=== PATIENT | male | born 1945 | race Caucasian/White ===

== ENCOUNTER 2017-09-05 15:37 | Emergency (ER) | payer MEDICARE ==
[~2017-09-05 15:37] MED LIST: ISOVUE-370 76%-LOCM 1 ML ONE
[2017-09-05 20:49] LABS: #Eosinphils 0.1 thou/uL (0.0-0.7); #Lymphocytes 1.9 thou/uL (1.20-3.40); #Monocytes 0.7 thou/uL (0.11-0.59); #Neutrophils 5.8 thou/uL (1.40-6.50); %Basophils 0.4 % (0.0-1.0); %Lymphocytes 21.9 % (21.0-51.0); %Monocytes 8.2 % (0.0-10.0); %Neutrophils 68.5 % (42.0-75.0); Hemoglobin 15.5 g/dL (14.0-18.0); Mean Corpuscular HGB CONC 34.6 g/dL (32.0-36.0); Mean Corpuscular Hemoglobin 33.2 pg (27.0-31.0); Platelet Count 180 thou/uL (130-400); RBC Distribution Width 13.1 % (11.5-14.5); Red Blood Cell (RBC) Count 4.68 mill/uL (4.70-6.10); White Blood Cell (WBC) Count 8.4 thou/uL (4.8-10.8)
[2017-09-05] MEDS ORDERED: Morphine 4 MG/ML VIAL ONE (20:56)
[2017-09-05] MEDS ORDERED: Ondansetron HCl/PF 4 MG/2 ML Vial ONE (21:02)
[2017-09-05 21:10] LABS: ALT (SGPT) 47 U/L (8-55); AST (SGOT) 21 U/L (5-34); Alkaline Phosphatase 18 U/L (40-150); Anion Gap 16 mmol/L (10-20); BUN (Urea Nitrogen) 15 mg/dL (8.4-25.7); Bilirubin, Total 1.6 mg/dL (0.2-1.2); CK (CPK) 52 U/L (30-200); Calc. Creatinine Clearance 0 mL/min (70-130); Calcium 9.7 mg/dL (7.8-10.44); Carbon Dioxide 25 mmol/L (23-31); Chloride 105 mmol/L (98-107); Estimated GFR-MDRD 83; Globulin 2.6 g/dL (2.4-3.5); Glucose 111 mg/dL (83-110); Potassium 3.6 mmol/L (3.5-5.1); Protein, Total 6.6 g/dL (5.8-8.1); Sodium 142 mmol/L (136-145)
[2017-09-05 21:13] LABS: CKMB 1.6 ng/mL (0-6.6); Troponin I Less than 0.010 ng/mL (< 0.028)
[2017-09-05 22:53] LABS: Troponin I Less than 0.010 ng/mL (< 0.028)
--- NOTE | 2017-09-05 23:50 | CT ---
EXAM: CT ANGIOGRAM OF THE THORACIC AND ABDOMINAL AORTA. 09/05/17 HISTORY: Pain. Evaluate for dissection. COMPARISON: 11/27/11. CORRELATION: CT angiogram chest 02/04/15. TECHNIQUE: CT angiogram of the thoracic and abdominal aorta is performed in the axial plane. Sagittal and card l three dimensional reformatted images are submitted for interpretation. FINDINGS: CHEST CT: No mediastinal mass, lymphadenopathy, or hematoma. Heart size is within normal limits. There is no pe ricardial effusion. Coronary artery calcifications are identified. Dependent atelectatic changes. No consolidation or mass. No pleural effusion. No pneumothorax. Trache a and central bronchi are patent. ABDOMEN CT: Liver, spleen, pancreas and adrenal glands have appropriate arterial phase enhancement. Limited evalu ation of the portal vein due to arterial phase enhancement. Symmetric attenuation of psoas muscles. Nonspecific minimal bilateral perinephric fat stranding. No evidence of obstructive uropathy. Symmetr ic enhancement of the kidneys. Limited evaluation of the alimentary canal. No evidence of bowel obstruction. Suggestion of a normal caliber appendix, only partially visualized. No mesenteric or lymphadenopathy, free air, or free flui d. Adjacent to the fourth portion of the duodenum is a soft tissue mass with areas of macroscopic fat measuring 4.4 x 3.5 cm. There is minimal induration of the adjacent mesentery. This mass is not appr eciated on the examination from 2011. The visualized osseous structures are unremarkable. CT ANGIOGRAM: The ascending thoracic aorta, thoracic aortic arch, descending thoracic aorta, abdominal aorta and ao rtic bifurcation have an overall normal caliber. No periaortic fat stranding. There is no significant stenosis of the celiac artery origin, superior mesenteric artery origin, bilateral renal artery orig in or the origin of the inferior mesenteric artery. 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 IMPRESSION: 1. No evidence of aneurysm or dissection. 2. Soft tissue mass with areas of macroscopic fat in the left hemiabdomen. Differential consider ations include a malignant lesion, such as liposarcoma. Focal area of induration of the mesentery due to mesenteritis or due to mesenteric infarction cannot be completely excluded. POS: [facility]
[2017-09-05] MEDS ORDERED: Diazepam 5 MG TAB ONE (23:51)
--- NOTE | 2017-09-30 22:41 | EKG ---
Test Reason : Blood Pressure : / mmHG Vent. Rate : 060 BPM Atrial Rate : 060 BPM P-R Int : 110 ms QRS Dur : 084 ms QT Int : 424 ms P-R-T Axes : 034 006 033 degrees QTc Int : 424 ms Sinus rhythm with short VT with occasional Premature ventricular complexes Otherwise normal ECG Confirmed by RENO KEATING ([id number]), online content editor BROOKLYNN ODONNELL ([id number]) on 09/30/2017 10:40:29 PM Referred By: Confirmed By:RENO KEATING
== END 2017-09-06 00:55 | disposition home or self-care (01) ==
LOC: ERS 15:37
DX: M54.12 Radiculopathy, cervical region (principal); M54.6 Pain in thoracic spine; E11.9 Type 2 diabetes mellitus without complications; I10 Essential (primary) hypertension; E78.5 Hyperlipidemia, unspecified; Z79.84 Long term (current) use of oral hypoglycemic drugs; Z79.82 Long term (current) use of aspirin; Z79.899 Other long term (current) drug therapy
CPT/HCPCS: 36415; 71275; 80053; 82550; 82553; 84484; 85025; 93005; 96374; 96375; J2270; J2405

== ENCOUNTER 2017-09-13 14:58 | Outpatient (CLI) | payer MEDICARE ==
--- NOTE | 2017-09-13 17:04 | RAD ---
FOUR VIEWS LUMBAR SPINE: Date: 09-13-17 History: Low back pain. FINDINGS: Four views provided including frontal imaging as well as lateral imaging in the neutral, flexion, and extension positions. Frontal imaging demonstrates multilevel disc space narrowing throughout the lumbar spine with lateral osteophyte formation, most prominent on the left at L2-3, L3-4, and L4-5. Lateral imaging in the neutral position demonstrates anterolisthesis at the lumbosacral junction jacek uring approximately 1.1 cm. With flexion the anterolisthesis at the lumbosacral junction measures sergei roximately 1 cm and with extension the anterolisthesis at the lumbosacral junction measures approxima tely 9 mm. Multilevel mild disc space narrowing with anterior osteophyte formation noted. There is mild disc spa ce narrowing at the lumbosacral junction. There is multilevel lower lumbar spine facet hypertrophy. T here is extensive atherosclerotic calcification of the abdominal aorta in the pelvic arterial structu res. 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 There is anterolisthesis at the lumbosac ral junction as described above. POS: [facility]
--- NOTE | 2017-09-13 17:30 | RAD ---
FIVE VIEWS CERVICAL SPINE: Date: 09-13-17 History: Neck pain radiating into the shoulders, bilateral upper extremity radiculopathy. FINDINGS: Open mouth odontoid view, frontal view, and lateral neutral, flexion, and extension views provided. Post-operative clips overlie the neck on the left. Open mouth odontoid view demonstrates a normal sergei earing dens and C1-2 articulation. There is prominent multilevel bilateral facet and uncal vertebral osteophyte formation, left greater than right, most significant at C4-5, C5-6, and C6-7. Multilevel disc space narrowing and anterior osteophyte formation is noted within the cervical spine, most significant at C4-5, C5-6, and C6-7. On the neutral lateral imaging there is anterolisthesis of C6 on C7 measuring approximately 5 mm. With flexion, there is anterolisthesis at C3-4 measuring 4 mm and at C6-7 measuring 5 mm. With extens ion the anterolisthesis seen on flexion at C3-4 is no longer seen. There is persistent anterolisthesi s at C6-7 with extension, measuring approximately 5 mm. No prevertebral soft tissue swelling. IMPRESSION: 1. Multilevel degenerative change noted within the cervical spine. There is anterolisthesis measuring 5 mm at C6-7, unchanged with neutral flexion and extension positioning. There is mild anterolisthesi s at C3-4 only seen with flexion. POS: [facility]
== END 2017-09-13 14:59 | disposition home or self-care (01) ==
LOC: TBSIIMAG 14:58
PROVIDERS: ATTEND Surgery
DX: M50.30 Other cervical disc degeneration, unspecified cervical region (principal); M54.5 Low back pain; M47.812 Spondylosis without myelopathy or radiculopathy, cervical region; M43.12 Spondylolisthesis, cervical region; M47.816 Spondylosis without myelopathy or radiculopathy, lumbar region; M43.17 Spondylolisthesis, lumbosacral region
CPT/HCPCS: 72050; 72110

== ENCOUNTER 2017-10-10 08:11 | Day surgery (SDC) | payer MEDICARE ==
[2017-10-10 08:33] LABS: PTT 25.3 SEC (22.9-36.1); Prothrombin Time 12.8 SEC (12.0-14.7)
[2017-10-10 09:49] VITALS: BP 119/84; TEMP 98.1
[2017-10-10 10:10] VITALS: BMI 25.8
--- NOTE | 2017-10-10 12:39 | CT ---
CT GUIDED LEFT ABDOMINAL MASS BIOPSY: History: Left retroperitoneal mass. Conscious sedation: 2 mg Versed, IV. 50 mg Fentanyl IV. FINDINGS: After explaining the procedure and answering all questions, limited CT of the abdomen was performed. A left posterolateral approach was planned to the retroperitoneal mass. Sterile technique, buffered l ocal anesthesia, conscious sedation, CT guidance and a left posterolateral approach were used to care fully advance a 19 gauge needle to the level of the retroperitoneal mass. Position was confirmed with CT. A total of ten 20 gauge core biopsy specimens were obtained and eventually submitted to pathology for evaluation. Needle was removed. No evidence of complication on the post procedure imaging. Patient t olerated the procedure well and was returned to the holding area for further monitoring. IMPRESSION: Technically successful CT guided retroperitoneal mass biopsy. Pathology is pending. POS: [facility]
== END 2017-10-10 12:30 | disposition home or self-care (01) ==
LOC: CT 08:11
PROVIDERS: ATTEND Specialist
DX: D17.79 Benign lipomatous neoplasm of other sites (principal); E11.9 Type 2 diabetes mellitus without complications; I10 Essential (primary) hypertension; E78.00 Pure hypercholesterolemia, unspecified; Z79.82 Long term (current) use of aspirin; Z79.02 Long term (current) use of antithrombotics/antiplatelets; Z79.84 Long term (current) use of oral hypoglycemic drugs; Z88.8 Allergy status to other drugs, medicaments and biological substances; Z79.899 Other long term (current) drug therapy; Z98.41 Cataract extraction status, right eye; Z98.42 Cataract extraction status, left eye; Z96.643 Presence of artificial hip joint, bilateral; Z98.890 Other specified postprocedural states
CPT/HCPCS: 36415; 49180; 77002; 85610; 85730; 88305; 88325

== ENCOUNTER 2019-10-18 14:05 | Outpatient (CLI) | payer MEDICARE ==
--- NOTE | 2019-10-18 16:33 | MRI ---
MRI THORACIC SPINE NONCONTRAST: 10/18/19 HISTORY: 74-year-old male with thoracic radiculopathy, M54.14. COMPARISON: None. FINDINGS: Vertebral body heights are maintained. No major bone marrow signal abnormality. Thoracic spinal cord is normal in size and signal, with the exception of a very small central cystic lesion with a caliber of approximately 1 mm, at the mid T9 level. This is again demonstrated at the mid T10 level, then ag ain demonstrated at the T11 through T12 levels contiguously. Axial images were not obtained inferior to the mid T12 level. There is no extrinsic cord impingement. No central spinal canal stenosis at any level. No high grade neural foraminal stenosis or nerve root impingement at any level. No major path ology of perivertebral spaces. Flowing ventral osteophytes protruding to the prevertebral space throu ghout the mid and lower thoracic spine represent DISH (diffuse idiopathic skeletal hyperostosis). IMPRESSION: 1. 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 2. Otherwise negative. POS: [facility]
== END 2019-10-18 14:06 | disposition home or self-care (01) ==
LOC: TBSIIMAG 14:05
PROVIDERS: ATTEND Specialist
DX: M54.14 Radiculopathy, thoracic region (principal); G95.89 Other specified diseases of spinal cord
CPT/HCPCS: 72146

== ENCOUNTER 2023-01-02 08:44 | Outpatient (CLI) | payer MEDICARE | END 2023-01-02 08:45 | disposition home or self-care (01) | LOC: RAD 08:44 | PROVIDERS: ATTEND Otolaryngology Otolaryngic Allergy | DX: R13.12 Dysphagia, oropharyngeal phase (principal); K21.9 Gastro-esophageal reflux disease without esophagitis | CPT/HCPCS: 74230 ==